=== PATIENT | male | born 1950 | race Caucasian/White ===

== ENCOUNTER → 2017-05-06 | Outpatient (CLI) | payer OTHER, MEDICARE ==
[~2017-05-06] MED LIST: AMIODARONE HCL100 MG PO; ARANESP 6060 MCG/0.3 SUBQ; ASPIR 8181 MG PO; ATORVASTATIN CA40 MG PO; B-COMPLEX PLUS1 EACH PO; COLACE 100 MG100 MG PO; COREG25 MG PO; COUMADIN 1MG TAB1 M1 PO; COUMADIN 2 MG TA2 M1 PO; HEPARIN IV; IPRAT-ALBUT 0.5-3 ML INH; LIDODERM1 EACH TOP; LISINOPRIL20 MG PO; MIDODRINE HCL 55 M1 PO; MIRALAX17 GM PO; NORCO 5-325 TA1 EACH PO; PACERONE 200 M200 M1 PO; PILOCARPINE HCL5 M1 PO; PROBIOTIC1 EAC1 PO; PROTONIX40 M1 PO; SECURA PROTECTI50 GM; SODIUM CHLORIDE50 M4 IVPB; SYNTHROID150 MCG PO; TYLENOL325 MG PO; VENOFER50 MG/2.5 IV; VITAMIN D1000 UNI1 PO; ZOFRAN ODT4 MG PO; [UNRECOGNIZED DRUG - OTHER] IV
== END ==
LOC: M.LAB 15:22
DX: E03.9 Hypothyroidism, unspecified (principal)

== ENCOUNTER → 2017-05-08 | Outpatient (CLI) | payer OTHER ==
--- NOTE | 2017-05-21 21:27 | ONC ---
[place] [address] RADIATION ONCOLOGY NOTE Name: TAINA WARD Room: [facility]#: [id number] Admission: 05/08/17 Attend Phys: Cade Rico MD Discharge: Date of : 54 Report #: [id number] THIS REPORT FOR: //name// CC: Cade Steward DO DATE OF SERVICE: 05/08/2017 REFERRING PHYSICIANS: 1. Felipe Steward DO 2. Valdemar Weeks MD 3. Jim Lopez MD 4. Chay Us MD [facility] phone is [phone]. 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 He received chemoradiotherapy. The Radiation treatments were completed on 11/06/2006. INTERVAL NOTE: The patient felt like he was eating well. He is eating a regular diet. He is swallowing well. He has a good quality voice. 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 He does take about 15 mg pilocarpine at night to help alleviate some of the symptoms associated with his xerostomia. SOCIAL HISTORY: The patient does not smoke cigarettes. MEDICATIONS: Include 150 mcg of levothyroxine per day, lisinopril, omeprazole, atorvastatin, carvedilol, aspirin, fish oil, and PreviDent. REVIEW OF SYSTEMS: RESPIRATORY: The patient was not short of breath. His breathing was baseline. GASTROINTESTINAL: He has a good appetite. PHYSICAL EXAMINATION: VITAL SIGNS: The patient weighed 230 pounds on 05/08/2017 and 226.8 pounds on 05/05/2017. On 05/08/2017 blood pressure was 134/72, pulse 60, respirations 20. LYMPH NODES: The patient had no palpable cervical or supraclavicular lymphadenopathy. HEAD, EYES, EARS, NOSE AND THROAT: Mouth had no suspicious visible lesions, or suspicious palpable lesions. HEART: Had a regular rate and [place] [address] RADIATION ONCOLOGY NOTE Name: TAINA WARD Room: [facility]#: [id number] Admission: 05/08/17 Attend Phys: Cade Rico MD Discharge: Date of : 54 Report #: [id number] LUNGS: were clear to auscultation. LABORATORY DATA: The patient's TSH was 3.305 which was within normal limits on his present dose of 150 mcg of levothyroxine per day. ASSESSMENT AND PLAN: 1. History of head and neck cancer- There is no evidence of head and neck cancer at this time. The patient was asked to schedule a follow up appointment to see me in about 1 year. 2. Hypothyroidism - The patient was given a refill for his 150 mcg of levothyroxine per day. His TSH was within normal limits on that dose of levothyroxine. A TSH was ordered in April of 2018 and the patient was asked to schedule a follow up appointment to see me afterwards. 3. Dental care- The patient was given a refill for PreviDent to use for dental care. 4. Xerostomia- The patient was given a refill for pilocarpine for xerostomia. 5. Hypertension- The patient takes lisinopril to control hypertension that is managed by his referring physicians. Thank you for allowing me to participate in the care of this patient. <ELECTRONICALLY SIGNED> By: Cade Rico MD 05/21/17 2127 [id number] 1024Dashavonne Rico MD /nt
== END ==
LOC: M.RTH 05-04 15:00
DX: Z08 Encounter for follow-up examination after completed treatment for malignant neoplasm (principal); E03.9 Hypothyroidism, unspecified; K11.7 Disturbances of salivary secretion; I10 Essential (primary) hypertension; Z85.89 Personal history of malignant neoplasm of other organs and systems

== ENCOUNTER 2017-12-16 14:00 | Inpatient (IN) | payer OTHER, MEDICARE ==
[~2017-12-16] VITALS: Ht 175.3 cm; Wt 86.6 kg
[2017-12-16] MEDS ORDERED: TYLENOL325 MG PO (14:54)
[2017-12-16] MEDS ORDERED: AMIODARONE HCL100 MG PO (14:55)
[2017-12-16] MEDS ORDERED: ASPIR 8181 MG PO (14:56)
[2017-12-16] MEDS ORDERED: ATORVASTATIN CA40 MG PO (14:57)
[2017-12-16] MEDS ORDERED: ARANESP 6060 MCG/0.3 SUBQ (15:00)
[2017-12-16] MEDS ORDERED: [UNRECOGNIZED DRUG - OTHER] IV (15:04)
[2017-12-16] MEDS ORDERED: HEPARIN IV (15:04)
[2017-12-16] MEDS ORDERED: NORCO 5-325 TA1 EACH PO (15:06)
[2017-12-16] MEDS ORDERED: IPRAT-ALBUT 0.5-3 ML INH (15:10)
[2017-12-16] MEDS ORDERED: VENOFER50 MG/2.5 IV (15:18)
[2017-12-16] MEDS ORDERED: SYNTHROID150 MCG PO (15:24)
[2017-12-16] MEDS ORDERED: PROBIOTIC1 EAC1 PO (15:24)
[2017-12-16] MEDS ORDERED: LIDODERM1 EACH TOP (15:27)
[2017-12-16] MEDS ORDERED: ZOFRAN ODT4 MG PO (15:28)
[2017-12-16] MEDS ORDERED: PILOCARPINE HCL5 M1 PO (15:29)
[2017-12-16] MEDS ORDERED: PROTONIX40 M1 PO (15:30)
[2017-12-16] MEDS ORDERED: MIRALAX17 GM PO (15:32)
[2017-12-16] MEDS ORDERED: SODIUM CHLORIDE50 M4 IVPB (15:38)
[2017-12-16] MEDS ORDERED: B-COMPLEX PLUS1 EACH PO (15:40)
[2017-12-16] MEDS ORDERED: COUMADIN 1MG TAB1 M1 PO (15:41)
[2017-12-16] MEDS ORDERED: SECURA PROTECTI50 GM (15:46)
[2017-12-16 18:30] VITALS: BP 121/83
[2017-12-16 20:18] VITALS: BP 133/82
[2017-12-17 05:00] LABS: HEMATOCRIT 26.6 % (42.0-52.0); HEMOGLOBIN 8.7 gm/dL (14.0-18.0); MCH 29.8 pg (26.0-34.0); MCHC 32.6 g/dL (28.0-37.0); MCV 91.5 fL (80.0-100.0); MPV 7.4 fl. (7.2-11.1); RBC 2.9 mil/uL (4.50-6.00); RDW-CV 17.9 % (10.5-14.5); WBC 4.3 thou/uL (4.0-11.0)
[2017-12-17 05:07] LABS: CALCIUM 7.6 mg/dL (8.5-10.1); CREATININE 3.4 mg/dL (0.6-1.3); POTASSIUM 3.5 mmol/L (3.5-5.1)
--- NOTE | 2017-12-17 05:16 | NUR ---
ASSUMED PT CARE AT 1930. PT ARRIVED TO FLOOR AT APPROXIMATELY 1830 FROM [facility]. ADMITTING DIAGNOSIS OF DEBILITY. HX OF ICD POCKET INFECTION, BATEREMIA, SUPERIOR VENA CAVA TEAR AND REPAIR, ACUTE RENAL FAILURE AND NOW ON INTERMITTENT DIALYSIS. PT HAS TESSO CATHETER TO RIGHT CHEST. PT ALREADY IN BED AT SHIFT CHANGE STATING HE IS VERY TIRED FROM DIALYSIS EARLIER IN THE DAY. PT HAD FLU SHOT AT PREVIOUS FACILITY BEFORE DEPARTURE. PT TAKES PILLS WHOLE WITH WATER WITHOUT DIFFICULTY. PEG TUBE TO LEFT UPPER QUADRANT NOT IN CURRENT USE. PT ON 2L 02 OVERNIGHT FOR COMFORT. PT SLEPT WELL OVERNIGHT, DENIES PAIN. CALL LIGHT AND FREQUENTLY USED ITEMS WITHIN REACH. HOURLY ROUNDING IN PROGRESS, WILL CONTINUE TO MONITOR.
[2017-12-17 08:00] VITALS: BP 123/75
--- NOTE | 2017-12-17 13:00 | NUR ---
Nutrition: Pt admitted to Rehab with debility. H/o cancerous throat glands/RAD leading to dry mouth. Recently had all teeth removed, waiting on dentures. Chopped/Renal diet. RN stated she will weigh pt today. No albumin recorded. RN stated pt is eating well, no nutrition concerns at this time.
[2017-12-17] MEDS ORDERED: COREG25 MG PO (13:06)
[2017-12-17] MEDS ORDERED: LISINOPRIL20 MG PO (13:07)
--- NOTE | 2017-12-17 14:59 | NUR ---
SW met with pt to complete initial assessment, introduce self, and SW role. Pt and pt brother in law were present. Pt alert, oriented. Pt lives at home with his . Pt worked but pt is retired so she can be with pt at all times at dc if needed. Pt does not have any DME and no hx of services. SW to continue to follow to assist with safe dc planning.
[2017-12-17 16:54] LABS: INR 2.2; PROTIME 22.6 Seconds (9.20-11.50)
--- NOTE | 2017-12-17 18:35 | NUR ---
PT HAS AMBULATED WITH THERAPIES WITH WALKER AND GAITBELT. PT HAS TREMORS. PT ALERT AND ORINETATED AND CALLS FOR ASSIST NEEDS. PT DENIES PAIN. OLD TRACH OSTOMY CLOSING WELL. G-TUBE INTACT TO ABDOMEN. PT DOES VOID AND I+O MAINTAINED. TESSIO CATHETER INTACT TO RT. UPPER CHEST. PT WILL HAVE DIALYSIS THURSDAY. PT TOLERATES MEALS AND HAS EATEN LUNCH IN DINNINGROOM.PT ORIENTATED TO REHAB AND THERAPY. HOURLY ROUNDING CONTINUES.
--- NOTE | 2017-12-17 20:15 | NUR ---
RESTING QUIETLY IN BED AND WATCHING TV. DENIES DISCOMFORT. CLEANED PEG TUBE SITE WITH WOUND SPRAY. TOOK MEDICATIONS WHOLE WITH WATER.
[2017-12-17 20:25] VITALS: BP 87/50
--- NOTE | 2017-12-18 05:44 | NUR ---
UP X ONE DURING THE NIGHT TO THE BATHROOM TO VOID AND HAD A BM. AMBULATED WITH GAITBELT, WALKER, STANDBY ASSIST. HOURLY ROUNDING IN PROGRESS.
[2017-12-18 07:59] VITALS: BP 98/63
[2017-12-18 08:00] VITALS: BP 98/63
--- NOTE | 2017-12-18 16:31 | NUR ---
PT ALERT AND ORIENTED X 4. DENIED PAIN DURING SHIFT. LISINOPRIL AND COREG HELD DUE TO LOW BP IN AM. UP WITH SBA USING GAIT BELT AND WALKER. PEG TUBE IN PLACE-NOT IN USE AT THIS TIME. PARTICIPATED IN THERAPIES DURING SHIFT. HOURLY ROUNDS MAINTAINED. CALL LIGHT WITHIN REACH. NURSING TO CONTINUE TO MONITOR.
[2017-12-18 20:19] VITALS: BP 123/72
--- NOTE | 2017-12-19 00:22 | NUR ---
ASSUMED CARE AT 1930. PATIENT HX DEBILITY. RESTING IN BED AT CHANGE OF SHIFT WITH MANY VISITORS. UP WITH SBA, GAIT BELT, WALKER. VOIDS INTO URINAL WHILE SITTING ON TOILET. HAD BM. DOES OWN CARES. TAKES PILLS WHOLE WITH WATER. PEG TUBE C/D/I, SKIN INTACT AROUND TUBE. 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 TESSIO CATH INTACT TO R CHEST. DIALYSIS DUE TOMORROW. NO TREMORS NOTED. TOOK SIMETHICONE FOR GAS. NO C/O PAIN. HOURLY ROUNDS CONTINUE. BED ALARM ON. CALL LITE IN REACH.
[2017-12-19 04:48] LABS: CALCIUM 8.6 mg/dL (8.5-10.1); POTASSIUM 3.6 mmol/L (3.5-5.1)
[2017-12-19 05:24] LABS: CREATININE 5.8 mg/dL (0.6-1.3)
[2017-12-19 05:27] LABS: % SATURATION 27 % (20-39); IRON 43 ug/dL (50-175)
--- NOTE | 2017-12-19 05:49 | NUR ---
SLEPT ALL NIGHT. TURNS SELF. HOURLY ROUNDS CONTINUE. BED ALARM ON. CALL LITE IN REACH.
[2017-12-19 07:00] VITALS: BP 127/70
--- NOTE | 2017-12-19 17:06 | NUR ---
PT HAS PARTICIPATED WITH THERAPIES TODAY BUT HAS FELT TIRES AND HAD SOME LABORED BREATHING. O2 SAT 92-94 AND O2 AT 2L PER NC USED NEEDED. PT CALLS FOR ASSIST TO BATHROOM AND VOIDS WELL AND HAD BM TODAY. PT REMINDED OF STRICT I+O BUT DID VOID ONCE WHEN HAVING BM ON TOILET. BANDAGE OVER OLD TRACH CHANGED WITH OLD SITE CLEANSED WITH NS. PT HAS GOOD VOICE WITH NO AIR HEARD BUT OS LOOKS HEALED BUT MOIST. G-TUBE CLEANSED AND REPOSITIONED FOR COMFORT WITH DRAIN DRESSING PLACED. PT NOW IN DIALYSIS.PT CONTINUES TO PROGRESS TOWARDS GOALS AND HOURLY ROUNDING CONTINUES.
--- NOTE | 2017-12-19 18:16 | NUR ---
dialysis compleded. pt returned to room per bed and is alert and orientated. at side.
[2017-12-19 20:00] VITALS: BP 98/48
--- NOTE | 2017-12-20 05:38 | NUR ---
ASSUMED PT CARE AT 1930. PT IN BED, AT BEDSIDE. PT RECENTLY RETURNED FROM DIALYSIS EXTREMELY TIRED. UP WITH SBA, GAIT BELT AND WALKER TO BATHROOM TO VOID. PT VERY WEAK AND UNSTEADY. VOIDS INTO URINAL R/T STRICT I&O. NO STOOL THIS SHIFT. TAKES PILLS WHOLE WITH WATER WITHOUT DIFFICULTY. PT ON 2L 02. PT C/O RIGHT SIDE BACK PAIN, REPORTING HE THINKS HE STRAINED HIS BACK TRYING TO PULL HIMSELF UP IN BED WHILE IN DIALYSIS. PRN TYLENOL GIVEN PER PT REQUEST. SKIN INTACT AT PEG TUBE SITE. TESSIO CATH INTACT TO R CHEST. DRESSING TO OLD TRACH SITE C/D/I. USES CALL LIGHT APPROPRIATELY. CALL LIGHT AND FREQUENTLY USE ITEMS WITHIN REACH. BED ALARM ON FOR SAFETY. HOURLY ROUNDING IN PROGRESS, WILL CONTINUE TO MONITOR.
[2017-12-20 07:59] VITALS: BP 97/54
[2017-12-20 11:15] VITALS: BP 98/54
[2017-12-20 11:25] VITALS: BP 77/50
[2017-12-20 13:46] VITALS: BP 90/44
--- NOTE | 2017-12-20 13:57 | NUR ---
PT HAVING LOW BP'S THIS AM AND REPORTED FEELING DIZZY WHEN WORKING WITH PHYSICAL THERAPY BUT REPORTED FEELING BETTER WHEN LYING DOWN. O2 SAT IS 98 WITH 2LNC PLACED FOR PT REQUEST FOR COMFORT. SAT WAS 92 ON ROOM AIR. PT HAS AMBULATED TO BATHROOM AND HAD BM AND VOIDED 100ML CLEAR YELLOW URINE AND NOW RESTS IN RECLINER WITH FEET ELEVATED. PT DENIES FURTHER DIZZINESS.
--- NOTE | 2017-12-20 17:01 | NUR ---
PT FEELING BETTER THIS AFTERNOON AND TOLERATED BEING UP TO RECLINER WELL. PT RESTS IN BED NOW WITH O2 ON AT 2L PER NC. PT CALLS FOR ASSIST NEEDS ADN REMAINS ALERT AND ORIENTATED.PT TOLERATES MEALS AND DENIES NAUSEA BUT DID REQUEST SIMEHTICONE THIS AM. PT PROGRESSES TOWARDS GOALS AND HOURLY ROUNDING CONTINUES.
[2017-12-20 19:45] VITALS: BP 84/43
--- NOTE | 2017-12-21 05:13 | NUR ---
ASSUMED PT CARE AT 1930. PT SITTING UP IN RECLINER VISITING WITH . PT CONTINUES TO HAVE LOW BLOOD PRESSURES. PER PT AND THIS HAS HAPPENED BEFORE AFTER DIALYSIS WHEN LARGE AMOUNT OF FLUID IS TAKEN OFF. PT HAD 2L TAKEN OFF ON 12/20. PT UP WITH SBA, GAIT BELT AND WALKER TO BATHROOM TO VOID. PT VOIDS INTO URINAL R/T STRICT I&O. NO STOOL THIS SHIFT. PT TAKES PILLS WHOLE WITH WATER WITHOUT DIFFICUTLY. PT ON 2L 02 PER NC. PRN TYLENOL FOR RIGHT SIDE PAIN. SKIN INTACT AT PEG TUBE SITE. TESSIO CATHETER INTACT TO RIGHT CHEST. DRESSING TO OLD TRACH SITE C/D/I. USES CALL LIGHT APPROPRIATELY. CALL LIGHT AND FREQUENTLY USED ITEMS WITHIN REACH. HOURLY ROUNDING IN PROGRESS, WILL CONTINUE TO MONITOR.
[2017-12-21 08:46] VITALS: BP 93/66; BP 98/66
[2017-12-21 16:45] VITALS: BP 115/69
--- NOTE | 2017-12-21 17:15 | NUR ---
pt remained alert and oriented this shift. pt bp this am was 98/66, pt/ot met with pt and bp dropped to sbp to 80's. pt returned to bed and bp went back up to sbp 90's. pt worked with pt/ot in bed today due to low bp and feeling ill. bp this afternoon increased to sbp 115. coreg dosage decreased and was administered. pt denies any pain this shift. pt got up for dinner to chair in room. walker and gait belt in room for ambulation, pt uses urinal to void. call light in reach. bed alarm on. will continue to monitor.
--- NOTE | 2017-12-21 18:13 | NUR ---
hourly rounding completed
[2017-12-21 20:09] VITALS: BP 111/62
[2017-12-22 04:34] LABS: HEMATOCRIT 29.2 % (42.0-52.0); HEMOGLOBIN 9.5 gm/dL (14.0-18.0)
[2017-12-22 04:35] LABS: ALBUMIN 2.6 g/dL (3.4-5.0); CALCIUM 8.3 mg/dL (8.5-10.1); CREATININE 5.7 mg/dL (0.6-1.3); PHOSPHORUS* 3.9 mg/dL (2.5-4.9); POTASSIUM 3.7 mmol/L (3.5-5.1)
--- NOTE | 2017-12-22 05:46 | NUR ---
ASSUMED PT CARE AT 1930. PT ALERT AND ORIENTED X4, POLITE AND COOPERATIVE WITH CARES. PT B/P WNL. PT UP WITH SBA, GAIT BELT AND WALKER TO BATHROOM TO VOID. STOOL X1 THIS SHIFT. PT TAKES PILLS WHOLE WITH WATER WITHOUT DIFFICULTY. ON 2L 02 PER NC OVERNIGHT. SKIN INTACT AT PEG TUBE SITE. TESSIO CATHETER INTECT TO RIGHT CHEST. DRESSING TO OLD TRACH SITE C/D/I. USES CALL LIGHT APPROPRIATELY. CALL LIGHT AND FREQUENTLY USED ITEMS WITHIN REACH. HOURLY ROUNDING IN PROGRESS, WILL CONTINUE TO MONITOR.
[2017-12-22 07:06] LABS: HEPATITIS B SURFACE AG Negative (Negative)
[2017-12-22 08:00] VITALS: BP 109/65
[2017-12-22 08:05] VITALS: BP 109/65
--- NOTE | 2017-12-22 11:08 | NUR ---
ASSUMED CARE OF PATIENT THIS AM AT 0730. PATIENT IS ALERT AND ORIENTED X 4. HIS AFFECT APPEARS SOMEWHAT FLAT, BUT PATIENT IS COOPERATIVE WITH GETTING UP TO TO THE CHAIR. PATIENT DENIES PAIN. PATIENT C/O BLURRED VISION IN HIS RIGHT EYE AND LIGHTHEADEDNESS. DR YU AND DR DUDLEY NOTIFIED OF PATIENT'S C/O. ORDERS WRITTEN. PATIENT NOT WORKING WITH PT OR OT TODAY. WILL CONTINUE TO MONITOR BP. COREG HELD THIS AM DUE TO LOW BPS.
--- NOTE | 2017-12-22 11:24 | NUR ---
SW called pt Asha in preparation for team conference tomorrow. Pt expressed concern regarding pt blood pressure and dialysis issues i.e. fluids, orthostatic, strength?, ability to participate 100%?. SW explained that SW will present to team conference and will follow up after team conference as well. SW to continue to follow to assist with safe dc planning.
[2017-12-22 20:25] VITALS: BP 132/70
[2017-12-22 20:30] VITALS: BP 133/69
--- NOTE | 2017-12-22 20:30 | NUR ---
AND [id number]-[id number] HERE AT SHIFT CHANGE VISITING AND JUST LEFT. PATIENT RESTING QUIETLY IN BED AND DENIES NEED FOR PAIN MEDICATION. NOTICED ABD SLIGHTLY DISTENDED AND ASKED PATIENT IF HE NEEDED PRN SIMETHICONE. PATIENT DID AGREE TO TAKING A DOSE. TOOK MEDICATIONS WHOLE WITH WATER. AMBULATED TO THE BATHROOM WITH SBA, GAITBELT, WALKER. PATIENT HAD A BM THAT WAS NOT VISIBLE DUE TO THE TOILET PAPER. PATIENT DID OWN HYGIENE AND CLOTHING ADJUSTMENTS.
[2017-12-23 05:51] LABS: CALCIUM 8.1 mg/dL (8.5-10.1); POTASSIUM 3.5 mmol/L (3.5-5.1)
[2017-12-23 05:58] LABS: CREATININE 3.3 mg/dL (0.6-1.3)
--- NOTE | 2017-12-23 06:07 | NUR ---
UP ONE MORE TIME DURING THE NIGHT TO THE BATHROOM AND HAD A LOOSE STOOL. RESTED QUIETLY THE REMAINDER OF THE NIGHT WITH 02 NC AT TWO LITERS. HOURLY ROUNDING IN PROGRESS.
[2017-12-23 08:00] VITALS: BP 104/61
[2017-12-23 10:00] VITALS: BP 116/57
[2017-12-23 10:01] VITALS: BP 102/60
[2017-12-23 10:03] VITALS: BP 105/65
--- NOTE | 2017-12-23 15:59 | NUR ---
BREANN and Dr Roach met with pt Asha to review team conference summary and plan for pt to continue therapies with team to reteam next Thursday to reassess pt length of stay. Pt and Dr Roach addressed pt BP issues, dialysis concerns, pt strengthening and participation. Pt in agreement with plan; pt was in therapy at the time. SW to continue to follow to assist with safe dc planning.
--- NOTE | 2017-12-23 18:15 | NUR ---
AM ASSESSMENT AND VITAL SIGNS COMPLETED DOCUMENTED. PT DID WELL WITH THERAPY TODAY, GOOD PROGRESS TOWARD DISCHARGE GOALS. CARDIOLOGY CONSULT PLACED FOR HYPOTENSION, DR FAGAN MADE MEDICATION CHANGES. FALL PRECAUTIONS AND HOURLY ROUNDING CONTINUE.
[2017-12-23 20:00] VITALS: BP 119/64
[2017-12-24 04:22] LABS: HEMOGLOBIN 10.1 gm/dL (14.0-18.0); MPV 7.5 fl. (7.2-11.1)
[2017-12-24 04:26] LABS: INR 1.6; PROTIME 15.9 Seconds (9.20-11.50)
[2017-12-24 04:27] LABS: ABSOLUTE BASOPHILS 0.1 thou/uL (0.0-0.2); ABSOLUTE EOSINOPHILS 0.2 thou/uL (0.0-0.7); ABSOLUTE NEUTROPHILS 2.3 thou/uL (1.6-8.1); EOSINOPHILS 3.2 %; HEMATOCRIT 30.6 % (42.0-52.0); LYMPHOCYTES 35.7 %; MCH 30.1 pg (26.0-34.0); MCHC 32.8 g/dL (28.0-37.0); MCV 91.8 fL (80.0-100.0); MONOCYTES 17.9 %; NUCLEATED RBCS 0 /100WBC; PLATELET COUNT* 342 thou/uL (150-400); POLYS 42.2 %; RBC 3.34 mil/uL (4.50-6.00); WBC 5.5 thou/uL (4.0-11.0)
[2017-12-24 04:46] LABS: CALCIUM 8.5 mg/dL (8.5-10.1); CREATININE 4.2 mg/dL (0.6-1.3); POTASSIUM 3.7 mmol/L (3.5-5.1)
--- NOTE | 2017-12-24 05:25 | NUR ---
ASSUMED CARE AT 1930. PATIENT RESTING IN BED. TAKES PILLS WHOLE WITH WATER. RT TESSIO CATH INTACT. UNCANNULATED TRACH STOMA C/D/I WITH BANDAID INTACT. MOVES SELF IN BED WELL. HAS NOT VOIDED THUS FAR THIS SHIFT. O2 2L/NC AT [facility]. HOURLY ROUNDS CONTINUE. BED ALARM ON. CALL LITE IN REACH.
[2017-12-24 08:27] VITALS: BP 144/89
--- NOTE | 2017-12-24 13:05 | EKG ---
[place] [address] ELECTROCARDIOGRAM REPORT Name: TAINA WARD Room: [address] ADM IN M.R.#: [id number] Admission: 12/16/17 Attend Phys: Viky Roach DO Discharge: Date of : 54 Report #: [id number] THIS REPORT FOR: //name// [facility] Test Date: 2017-12-24 Test Time: 08:01:14 Pat Name: TAINA ESPINOZAPKINS Department: Room: [address] Gender: M Jointer Operator: : 1950 Requested By: Rylan Jimenez Order Number: [id number] MD: Rylan Jimenez Measurements Intervals Pratt Rate: 72 P: 41 KS: 187 QRS: -37 QRSD: 113 T: QT: 455 QTc: 499 Interpretive Statements Sinus rhythm Borderline IVCD with LAD Low voltage, precordial leads Consider anterior infarct Baseline wander in lead(s) V2,V6 No previous ECG available for comparison Electronically Signed On 12-24-2017 13:04:46 CDT by Rylan Jimenez [email or web address] <ELECTRONICALLY SIGNED> By: Rylan Jimenez MD, [facility] 12/24/17 1304 0801 0801 Rylan Jimenez MD, [facility] /EPI
--- NOTE | 2017-12-24 17:40 | NUR ---
PT COMPLETED THERAPY SCHEDULED, TOLERATED WELL. HOURLY ROUNDING AND FALL PRECAUTIONS IN PLACE. PT IS CURRENTLY IN [facility].
--- NOTE | 2017-12-24 18:07 | NUR ---
PT RETURNED TO ROOM AFTER DIALYSIS AND IS SITTING UP IN BED EATING DINNER WITH HIS . PT DENIES DISCOMFORT, NO NEEDS AT THIS TIME.
[2017-12-24 20:00] VITALS: BP 97/58
[2017-12-25 05:05] LABS: ALBUMIN 2.6 g/dL (3.4-5.0); CALCIUM 7.7 mg/dL (8.5-10.1); PHOSPHORUS* 2.7 mg/dL (2.5-4.9); POTASSIUM 3.6 mmol/L (3.5-5.1)
[2017-12-25 05:12] LABS: CREATININE 2.8 mg/dL (0.6-1.3)
--- NOTE | 2017-12-25 05:19 | NUR ---
ASSUMED PT CARE AT 1930. PT ALERT AND ORIENTED X4, SITTING UP IN BED VISITING WITH . PT TO RADIOLOGY FOR CXR AT BEGINNING OF SHIFT. PT TAKES PILLS WHOLE WITH WATER WITHOUT DIFFICULTY. TESSIO CATHETER INTECT TO RIGHT CHEST. UNCANNULATED TRACH STOMA C/D/I. MOVES SELF IN BED. NO STOOL THIS SHIFT. 2L 02 PER NC AT [facility]. USES CALL LIGHT APPROPRIATELY. CALL LIGHT AND FREQUENTLY USED ITEMS WITHIN REACH. HOURLY ROUNDING IN PROGRESS, WILL CONTINUE TO MONITOR.
[2017-12-25 07:56] VITALS: BP 117/76
[2017-12-25 20:00] VITALS: BP 114/62
[2017-12-26 04:52] LABS: HEMATOCRIT 30.9 % (42.0-52.0); HEMOGLOBIN 10.1 gm/dL (14.0-18.0); MCH 30.1 pg (26.0-34.0); MCHC 32.5 g/dL (28.0-37.0); MCV 92.5 fL (80.0-100.0); MPV 7.8 fl. (7.2-11.1); RBC 3.35 mil/uL (4.50-6.00); RDW-CV 17.5 % (10.5-14.5); WBC 5.8 thou/uL (4.0-11.0)
[2017-12-26 05:11] LABS: CALCIUM 8.4 mg/dL (8.5-10.1); MAGNESIUM 1.7 mg/dL (1.8-2.4); POTASSIUM 3.4 mmol/L (3.5-5.1)
[2017-12-26 05:12] LABS: CREATININE 3.8 mg/dL (0.6-1.3)
--- NOTE | 2017-12-26 05:19 | NUR ---
ASSUMED CARE AT 1930. PATIENT RESTING IN BED, PLAYING GAMES ON PHONE AND WATCHING TV. TAKES PILLS WHOLE WITH WATER. TURNS SELF. O2 2L/NC APPLIED BY RT AFTER HS BREATHING TREATMENT. HAS NOT VOIDED THUS FAR THIS SHIFT. BLOOD PRESSURE 114/62, NO PRN MED NEEDED. TESSIO CATH DRESSING C/D/I. G TUBE INTACT, SKIN SURROUNDING D/I. TRACH STOMA C/D/I. HOURLY ROUNDS CONTINUE. BED ALARM ON. CALL LITE IN REACH.
[2017-12-26 08:00] VITALS: BP 116/80
--- NOTE | 2017-12-26 17:55 | NUR ---
AM ASSESSMENT AND VITAL SIGNS COMPLETED DOCUMENTED. PT COMPLETED THERAPY AND HAD DIALYSIS TODAY, TOLERATED BOTH WELL. DRESSING TO RIGHT CHEST TESSIO CHANGED IN DIALYSIS, C/D/I AT THIS TIME. PT VOIDED 450 CC'S URINE THIS SHIFT. NO C/O PAIN OR DISCOMFORT. HOURLY ROUNDING AND FALL PRECAUTIONS CONTINUE.
[2017-12-26 20:30] VITALS: BP 119/71
--- NOTE | 2017-12-26 20:30 | NUR ---
RESTING QUIETLY IN BED AND WATCHING TV. HERE EARLIER VISITING. DENIES DISCOMFORT. AMBULATED TO THE BATHROOM WITH SBA, GAITBELT, WALKER. HAD A SMALL LOOSE STOOL. DID OWN RICHIE CARE AND CLOTHING ADJUSTMENTS. TOOK MEDICATIONS WHOLE WITH WATER.
--- NOTE | 2017-12-27 05:24 | NUR ---
RESTED QUIETLY. USED URINAL X ONE DURING THE NIGHT. HAD OXYGEN AT 2 LITER NC AT STANDBY. DIDN'T PUT IT ON UNTIL ABOUT 0400. 02 SAT 98% WITH THE 2 LITERS. HOURLY ROUNDING IN PROGRESS.
[2017-12-27 08:00] VITALS: BP 112/76
--- NOTE | 2017-12-27 15:12 | CON ---
[facility] [address] [place] [address] CONSULTATION Name: TAINA WARD Room: [address] IN .R.#: [id number] Admission: 12/16/17 Attend Phys: Viky Roach DO Discharge: Date of : 54 Report #: [id number] THIS REPORT FOR: //name// CC: Juancho Roach DATE OF SERVICE: 12/23/2017 TYPE OF REPORT: Cardiology consultation. PRIMARY CARE PHYSICIAN: Juancho Gomez M.D. HISTORY OF PRESENT ILLNESS: The patient is a 67-year-old white male who I was asked to see in the hospital today because of low blood pressure. The patient has an extensive and complicated past medical history. He apparently presented 14 years ago with chest pain. He was found to have evidence of a nonischemic cardiomyopathy. He was admitted to [facility] on [facility] and had a defibrillator implanted. He underwent a generator change about 7 years ago at [facility]. This past summer, he was found again be at [facility]. He was admitted to [facility] in [facility] as an outpatient to undergo his second generator change. He notes the defibrillator is not pace and he had had no recent discharges. Apparently, the procedure was performed as an outpatient. He notes that the next day when he was at home, had some redness over the defibrillator. He was readmitted to [facility] in [facility] on the following Thursday for antibiotics. He apparently was noted to have positive blood cultures. A week later then, the generator was removed. He was then taken to the Operating Room and according to the patient's family, both leads were removed in the Operating Room. However, apparently when one of the leads were removed, a vein perforated. He required emergent thoracotomy with repair of the vein. He had to be taken back to the Operating Room 2 days later to have a patch placed on the vein. He had a prolonged and complicated postoperative course. He developed renal failure and now is on dialysis with the temporary dialysis catheter. He required tracheostomy for prolonged respiratory failure. He had a PEG tube placed. He was then transferred to [place] where he was for a month. Eventually, he was weaned off the ventilator and the tracheostomy was closed. He does the PEG tube, although he is now swallowing. He was transferred here to [place] a week ago for rehabilitation. The patient remains very weak and uses a walker. He has had no significant chest pain. He does get short of breath with exertion. He has had no palpitations or syncope. He has had some blurred vision. He does not have much of an appetite. He was noted to be hypotensive. Cardiology consultation was requested. Apparently, his last ejection fraction was 48%. He remains on oxygen. He apparently did have postoperative atrial fibrillation requiring cardioversion and [place] [address] CONSULTATION Name: TAINA WARD Room: [address] [id number] Admission: 12/16/17 Attend Phys: Viky Roach DO Discharge: Date of : 54 Report #: [id number] PAST MEDICAL HISTORY: Otherwise significant for cancer of the throat requiring chemotherapy and radiation therapy. He has had no history of hypertension, diabetes or hyperlipidemia. ALLERGIES: He has no known drug allergies. FAMILY HISTORY: Negative for heart disease. SOCIAL HISTORY: He is . He and his live here in [place]. 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 No smoking or alcohol abuse. REVIEW OF SYSTEMS: He has had no history of stroke, asthma, peptic ulcer disease or liver disease. PHYSICAL EXAMINATION: GENERAL: Revealed an elderly male, lying in bed, appeared in no distress. VITAL SIGNS: He had a blood pressure of only 100/60, pulse is 80s and afebrile. HEENT: He is anicteric. Conjunctivae pink. Mucous members appear moist. NECK: Veins do not appear distended. CHEST: Clear to auscultation. CARDIOVASCULAR: Regular rate and rhythm. ABDOMEN: Soft. EXTREMITIES: Had no edema. SKIN: Warm and dry. NEUROLOGICAL: Nonfocal. LABORATORY DATA: His workup so far: Sodium 137 and creatinine 3.3. His white blood cell count 5.3, hemoglobin 9.5 and hematocrit 29.2. RADIOLOGICAL DATA: He had no recent chest x-ray here. IMPRESSION AND RECOMMENDATIONS: 1. Hypotension, suspect secondary to removal of fluid during dialysis. The patient is on midodrine. Since his ejection fraction was almost normalized, I would stop his small dose of carvedilol at this time. I would also recommend decrease the dose of amiodarone 400, only 200 mg a day. I would avoid dehydration. 2. History of atrial fibrillation. The patient is chronically anticoagulated with warfarin. His INR last week was 2.2. 3. Cardiomyopathy. Ejection fraction has improved. 4. History of atrial fibrillation. The patient is on amiodarone and anticoagulated. 5. Recent removal of a defibrillator leads. 6. Recent perforation or vein requiring surgery. 7. Renal failure. The patient on dialysis. [address] [place] [address] CONSULTATION Name: TAINA WARD Room: [address] IN ..#: [id number] Admission: 12/16/17 Attend Phys: Viky Roach DO Discharge: Date of : 54 Report #: [id number] 8. History of respiratory failure. The patient no longer requires tracheostomy. <ELECTRONICALLY SIGNED> By: Rylan Jimenez MD, FACC 12/27/17 1512 1633 [id number] Jimenez MD, FACC /nt
[2017-12-27 18:10] LABS: INR 1.3; PROTIME 13.8 Seconds (9.20-11.50)
--- NOTE | 2017-12-27 18:37 | NUR ---
PT PLEASANT AND COOPERATIVE BUT REFUSED TO EAT IN THE DINING ROOM OR WALK IN THE HALLS. PT DID HAVE SEVERAL VISITORS AND HE INTERACTS WELL WITH THEM AND HIS . URINE OUTPUT 525 ML THIS SHIFT. NO ACUTE DISTRESS NOTED.
[2017-12-27 19:58] VITALS: BP 134/73
--- NOTE | 2017-12-28 01:22 | NUR ---
ASSUMED CARE @ 1944-12/27-THURSDAY.AWAKE IN BED W/ HOB UP WATCJHING TV.BED ALARM PUT ON @ 1944.PEG TUBING INTACT BUT NOT BEING USED @ THIS TIME.BAND AID SAMARA INTACT-TRACH SITE.URINAL W/IN REACH.ON HOURLY ROUNDS.PUMPER GAGER APPRENTICE DOING ODD HOUR ROUNDS.TURNS SELF @ NIGHT.02 2L/NC ON FOR NIGHT USE.
[2017-12-28 04:13] LABS: CALCIUM 8.2 mg/dL (8.5-10.1); CREATININE 3.8 mg/dL (0.6-1.3); POTASSIUM 3.6 mmol/L (3.5-5.1)
--- NOTE | 2017-12-28 05:33 | NUR ---
SLEPT LATE @ 0000-12/28-THURSDAY & SLEEPING GOOD ALL NIGHT.REFUSED HS SNACK. NO VOIDING DURING NIGHT.ON DIALYSIS.
[2017-12-28 08:46] VITALS: BP 124/78
--- NOTE | 2017-12-28 17:57 | NUR ---
ASSUMED CARE OF PATIENT AFTER MORNING REPORT AT APPROX 0720. ALERT AND OREINTED X4. ASSESSMENT COMPLETED AND CHARTED. VSS ON ROOM AIR. NO COMPLAINTS OF PAIN, NAUSEA, OR SOA. PATIENT WORKED WELL WITH THERAPIES AND WALKED AROUND THE UNIT TWICE TODAY. PATIENT DECLINED TO HAVE MEALS IN THE DINING ROOM TODAY. WIFR HAS BEEN AT BEDSIDE TODAY. HOURLY ROUNDS MAINTAINED, CALL LIGTH WITHIN REACH, NURSING WILL CONTINUE TO MONITOR.
[2017-12-28 19:35] VITALS: BP 140/79
--- NOTE | 2017-12-29 00:54 | NUR ---
ASSUMED CARE @ 1929-12/28-THURSDAY.AWAKE IN BED W/ HOB UP WATCHING TV.BED ALARM PUT ON @ 1937.PRN SIMETHICONE 120 MG TABS GIVEN @ 1937 FOR GAS PAINS.AFFORDED RELIEF.PEG SITE CLEANSED W/ WOUND CLEANSER @ 2014 & DRIED WELL.URINAL W/IN REACH.WEARS ONLY RIGHT HEARING AID.LEFT HEARING AID-BROKEN.REMOVES HEARING AID @ HS.AWAKENED @ -12/29-THURSDAY TO PUT O2 BUT CLAIMS HE DOES NOT NEED IT. TURNS SELF @ NIGHT.ON HOURLY ROUNDS.
[2017-12-29 04:56] LABS: INR 1.4
[2017-12-29 04:58] LABS: CALCIUM 8.5 mg/dL (8.5-10.1); CREATININE 4.3 mg/dL (0.6-1.3); POTASSIUM 3.8 mmol/L (3.5-5.1)
--- NOTE | 2017-12-29 05:37 | NUR ---
SLEPT LATE @ 2300 BUT SLEEPING GOOD ALL NIGHT.REFUSED HS SNACK.REFUSED NEW ORDER LOVENOX @ HS.WANTS TO TALK TO HIMS WHO ORDERED LOVENOX-SINCE HE IS ALREADY ON COUMADIN.SLEEPING @ 0300 W/OUT O2. O2 SAT-93 %.USED URINAL X1 ONLY. NURSE EMPTIES URINAL @ NIGHT.FOR DIALYSIS TODAY-THURSDAY @ 1400.
[2017-12-29 11:00] VITALS: BP 136/86
--- NOTE | 2017-12-29 13:17 | NUR ---
SW followed up with pt regarding dc planning and insurance coverage. SW explained team requesting a couple more days with pt for family training and continued strengthening; also to ensure medical stability and prepare for possible OP dialysis and follow up services. SW to continue to follow to assist with finalizing safe dc plan.
--- NOTE | 2017-12-29 15:07 | NUR ---
PT ALERT AND ORIENTED X 4. DENIES PAIN. UP WITH SBA X1. PEG TUBE IN PLACE. DIALYSIS CATHETER RIGHT CHEST. SPOUSE AT BEDSIDE. WILL USE CALL LIGHT FOR ASSISTANCE. PT TO DIALYSIS ROOM BY BED @ 1350.
--- NOTE | 2017-12-29 18:35 | NUR ---
PT RETURNED FROM DIALYSIS AT 1735. JF=723/80, P=88. DENIES PAIN. HOURLY ROUNDS MAINTAINED. AT BEDSIDE. WILL USE CALL LIGHT FOR ASSISTANCE. CALL LIGHT WITHIN REACH. NURSING TO CONTINUE TO MONITOR.
[2017-12-29 20:00] VITALS: BP 125/68
[2017-12-30 04:24] LABS: ABSOLUTE BASOPHILS 0.1 thou/uL (0.0-0.2); ABSOLUTE EOSINOPHILS 0.1 thou/uL (0.0-0.7); ABSOLUTE LYMPHOCYTES 1.7 thou/uL (0.8-5.3); ABSOLUTE MONOCYTES 1.2 thou/uL (0.0-1.2); ABSOLUTE NEUTROPHILS 3.3 thou/uL (1.6-8.1); BASOPHILS 1.3 %; EOSINOPHILS 1.8 %; HEMATOCRIT 31.5 % (42.0-52.0); HEMOGLOBIN 10.2 gm/dL (14.0-18.0); LYMPHOCYTES 26.3 %; MCH 29.6 pg (26.0-34.0); MCHC 32.5 g/dL (28.0-37.0); MCV 91.3 fL (80.0-100.0); MONOCYTES 18.5 %; MPV 8.3 fl. (7.2-11.1); NUCLEATED RBCS 0 /100WBC; PLATELET COUNT* 275 thou/uL (150-400); POLYS 52.1 %; RBC 3.45 mil/uL (4.50-6.00); RDW-CV 16.8 % (10.5-14.5); WBC 6.3 thou/uL (4.0-11.0)
[2017-12-30 04:32] LABS: INR 1.5; PROTIME 15.4 Seconds (9.20-11.50)
[2017-12-30 04:33] LABS: CALCIUM 8.1 mg/dL (8.5-10.1); POTASSIUM 3.9 mmol/L (3.5-5.1)
[2017-12-30 04:50] LABS: CREATININE 2.8 mg/dL (0.6-1.3)
--- NOTE | 2017-12-30 05:17 | NUR ---
ASSUMED PT CARE AT 1930. PT ALERT AND ORIENTED 4, POLITE AND COOPERATIVE WITH CARES. SITTING UP IN BED VISITING WITH . PT RECENTLY RETURNED FROM DIALYSIS. VS WNL, DENIES PAIN. PT IS [place], ONLY WEARS RIGHT HEARING AIDE, LEFT ONE IS BROKEN. TAKES PILLS WHOLE WITH WATER WITHOUT DIFFICULTY. PT UP WITH SBA, GAIT BELT AND CANE TO BATHROOM, STOOL X1 THIS SHIFT. PT USES URINAL AND STAFF EMPTIES. PT TOOK LOVENOX THIS EVENING. BAND AID TO TRACH SITE C/D/I. TESSIO CATHETER INTACT TO RIGHT CHEST. PEG TUB TO ABDOMEN, NO S/S OF INFECTION. USES CALL LIGHT APPROPRIATELY. CALL LIGHT AND FREQUENTLY USED ITEMS WITHIN REACH. HOURLY ROUNDING IN PROGESS, WILL CONTINUE TO MONITOR.
[2017-12-30 06:20] VITALS: BP 159/73
[2017-12-30 08:04] VITALS: BP 134/79
[2017-12-30] MEDS ORDERED: COUMADIN 2 MG TA2 M1 PO (11:19)
[2017-12-30] MEDS ORDERED: PACERONE 200 M200 M1 PO (11:19)
[2017-12-30] MEDS ORDERED: COLACE 100 MG100 MG PO (11:20)
[2017-12-30] MEDS ORDERED: VITAMIN D1000 UNI1 PO (11:21)
[2017-12-30] MEDS ORDERED: PROBIOTIC1 EAC1 PO (11:21)
--- NOTE | 2017-12-30 15:18 | NUR ---
BREANN and Dr Roach met with pt and pt to review team conference summary and plan for pt to dc home with on Thursday. Pt to complete family training today and then pt allowed to be mod I in room as long as pt is present. Pt to have video swallow on Thursday prior to dc. Team recommending pt to continue vital stem after dc. SW to order SPC; [facility] checked pt insurance and they approved referral. SW to follow to arrange for HH services to follow at dc. Referral sent for OP dialysis to [facility] requesting BS location. BREANN to continue to follow to assist with safe dc planning.
--- NOTE | 2017-12-30 15:38 | NUR ---
AM ASSESSMENT AND VITAL SIGNS COMPLETED DOCUMENTED. PT CONTINUES TO WORK WITH THERAPIES AND CONTINUES TO MAKE PROGRESS TOWARD DISCHARGE GOALS. PT AND HIS BOTH STATE THEY ARE EXCITED ABOUT DISCHARGE THURSDAY. FALL PRECAUTIONS AND HOURLY ROUNDING CONTINUE.
--- NOTE | 2017-12-30 20:00 | NUR ---
SITTING UP IN RECLINER PLAYING [employer] ON CELL PHONE. DENIES DISCOMFORT. TOOK MEDICATIONS WHOLE WITH WATER.
[2017-12-30 20:21] VITALS: BP 133/81
[2017-12-31 05:17] LABS: CALCIUM 8.3 mg/dL (8.5-10.1); POTASSIUM 3.6 mmol/L (3.5-5.1)
--- NOTE | 2017-12-31 05:17 | NUR ---
UP X 2 TO VOID AND HAD A LOOSE STOOL EACH TIME. DOESN'T CALL FOR ASSIST WHEN GOES TO THE BATHROOM. NO COMPLAINTS VOICED. HOURLY ROUNDING IN PROGRESS.
[2017-12-31 05:20] LABS: CREATININE 3.8 mg/dL (0.6-1.3)
[2017-12-31 08:00] VITALS: BP 140/72
[2017-12-31 08:51] VITALS: BP 140/72
[2017-12-31 19:43] VITALS: BP 119/72
[2018-01-01 02:03] VITALS: BP 119/72
[2018-01-01] MEDS ORDERED: MIDODRINE HCL 55 M1 PO (02:33)
[2018-01-01 04:30] LABS: INR 1.7; PROTIME 17.5 Seconds (9.20-11.50)
--- NOTE | 2018-01-01 05:23 | NUR ---
ASSUMED CARE AT 1920. ALERT AND ORIENTED. PLEASANT. DENIED ANY PAIN. DID NOT STAY OVERNIGHT. TOLD PT TO CALL WHEN NEEDING TO GET UP. PT VOICED UNDERSTANDING. SBA WITH GAIT BELT AND CANE. USED URINAL AND NURSING EMPTIED. SLEPT WELL MOST OF THE NIGHT. CALL LIGHT IN REACH.
[2018-01-01 07:54] VITALS: BP 113/77
[2018-01-01 12:01] VITALS: BP 119/72
--- NOTE | 2018-01-01 12:03 | NUR ---
Pt to dc home with today, Monday 01/01. HH services to follow; SW faxed referral and final orders to pt/family preference on [facility]; they accepted referral. SW confirmed OP dialysis accepted through [facility]; pt chair time TThSat at 11:15 and pt to arrive on Sat at 10:45. BREANN discussed this with pt and pt . BREANN ordered single point cane through [facility] that is to be issued through PT prior to pt dc. SW provided the completed handicap parking tag form to pt . Pt to provide pt ride home.
--- NOTE | 2018-01-01 12:33 | NUR ---
AM ASSESSMENT AND VITAL SIGNS COMPLETED DOCUMENTED. PT HAS COMPLETED AM THERAPIES AND A VIDEO SWALLOW. DISCHARGE GOALS HAVE BEEN MET AND PT WILL BE GOING HOME THIS AFTERNOON.
--- NOTE | 2018-01-01 13:54 | NUR ---
DISCHARGE INSTRUCTIONS AND NEW PRESCRIPTIONS PROVIDED TO PT AND HIS . PRINTED COPY PROVIDED FOR HOME REFERENCE. PT AND BELONGINGS TRANSPORTED TO THE EXIT, DISCHARGED HOME IN STABLE CONDITION.
--- NOTE | 2018-01-20 13:57 | H ---
[address] [address] HISTORY AND PHYSICAL Name: TAINA WARD Room: [address]#: [id number] Admission: 12/16/17 Attend Phys: Viky Roach DO Discharge: 01/01/18 Date of : 54 Report #: [id number] THIS REPORT FOR: //name// CC: Juancho Roach DATE OF SERVICE: 12/16/2017 HISTORY OF PRESENT ILLNESS: This is a 67-year-old male admitted to inpatient rehabilitation to facilitate safe discharge home, status post acute hospitalization further at [place] with history of ICD pocket infection, bacteremia, antibiotics had been initiated; superior vena cava tear with repair; subsequent stenosis; thrombectomy x 2, on warfarin; acute renal failure with intermittent dialysis; cardiopulmonary arrest with tracheostomy, on oxygen; previous PEG tube, but now taking p.o. food and multiple medical comorbidities requiring acute daily medical care. He has been participating in physical and occupational therapy as well as speech and language pathology. No significant changes since the preadmission screening. Previous level of function was modified independent to independent with activities of daily living. Current level of function is [id number]-et-[id number] assistance of 1-2 depending on therapy, activity and time of day. Estimated length of stay is 14-16 days with discharge disposition to the home setting where he has supportive family and an accessible home. MEDICATIONS: Reviewed and reconciled by myself and are available in MAR. PAST MEDICAL HISTORY: Hypertension, coronary artery disease, SVT, nonischemic cardiomyopathy, tonsillar cancer, hypothyroid. FAMILY HISTORY: Heart disease. SOCIAL HISTORY: No tobacco, alcohol or illicit drug use. PAST SURGICAL HISTORY: History of throat cancer in 2008, hernia repair and surgeries as mentioned in HPI. ALLERGIES: No known drug allergies. REVIEW OF SYSTEMS: A 14-point review of systems is done and is negative except as mentioned in HPI, specifically no fever, chest pain, shortness of breath, abdominal pain or distention. PHYSICAL EXAMINATION: GENERAL: Alert, oriented, in no apparent distress. VITAL SIGNS: Reviewed and are stable. HEENT: Head atraumatic, normocephalic. Pupils equal, round, [place] [address] HISTORY AND PHYSICAL Name: TAINA WARD Room: [address]#: [id number] Admission: 12/16/17 Attend Phys: Viky Roach DO Discharge: 01/01/18 Date of : 54 Report #: [id number] ABDOMEN: Soft, nontender, nondistended. NEUROLOGIC: Cranial nerves 2-12 are grossly intact. No focal neuro deficits. SKIN: Warm and dry. No rashes or lesions noted. ASSESSMENT: 1. History of ICD pocket infection with bacteremia. 2. Superior vena cava tear, status post repair with subsequent stenosis and thrombectomy x 2. 3. Acute renal failure with intermittent dialysis. 4. History of n.p.o. with PEG tube status for nutrition, now taking p.o. 5. History of multiple medical comorbidities requiring acute daily medical care. PLAN: 1. Admission to inpatient rehabilitation to facilitate safe discharge home. 2. PT, OT, speech, language, case management, nursing and HIMS to make evaluations and recommendations. 3. Plan of care is pending and we will team him weekly. 4. Laboratories on the day after admission. 5. Renal to follow for dialysis recommendations and initiation. <ELECTRONICALLY SIGNED> By: Viky Roach DO 01/20/18 1357 [id number] Roach DO /nt
--- NOTE | 2018-01-20 13:57 | PLAN ---
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 He is on anticoagulation. He has acute renal failure on intermittent dialysis as well as history of cardiopulmonary arrest with tracheostomy, status post oxygen via trach shield, PEG tube for nutrition although he is now taking p.o. He does have multiple medical comorbidities requiring acute daily medical care. He has needs in physical and occupational therapy as well as speech and language pathology. Previous level of function was modified independent to independent with activities of daily living. Current level of function is minimum to moderate assistance of 1-2 depending on therapy, activity and time of day. Estimated length of stay is 14-16 days with discharge disposition to home setting with a supportive family and accessible home. MEDICAL PROGNOSIS: Good. REHABILITATION PROGNOSIS: Good. Physical therapy will see the patient 60-90 minutes per day, 5 days per week, working on upper and lower body strength, balance, coordination and navigation. Occupational therapy will see the patient 60-90 minutes per day, 5 days per week, working on upper and lower body strength, balance, coordination, navigation, bathing, dressing and toileting. Speech and language pathology will work with the patient 30-90 minutes per day, 5 days per week, working on expression, memory, social interaction and judgment. He will be on a low endurance protocol. This is an overall plan of care and it may change from time to time. We will team him weekly and make changes to plan of care as needed. <ELECTRONICALLY SIGNED> By: Viky Roach DO 01/20/18 1357 [id number] Roach DO /nt
== END 2018-01-01 14:00 | disposition home health service (06) | DRG 947 ==
LOC: M.REH 14:00
PROVIDERS: Family Medicine; Internal Medicine; Internal Medicine Nephrology; ADMIT Physical Medicine & Rehabilitation
PROC: 5A1D70Z Performance of Urinary Filtration, Intermittent, Less than 6 Hours Per Day (ICD-10-PCS; principal; 2017-12-19)
PROC: 5A1D70Z Performance of Urinary Filtration, Intermittent, Less than 6 Hours Per Day (ICD-10-PCS; 2017-12-22)
PROC: 5A1D70Z Performance of Urinary Filtration, Intermittent, Less than 6 Hours Per Day (ICD-10-PCS; 2017-12-24)
PROC: 5A1D70Z Performance of Urinary Filtration, Intermittent, Less than 6 Hours Per Day (ICD-10-PCS; 2017-12-26)
PROC: 5A1D70Z Performance of Urinary Filtration, Intermittent, Less than 6 Hours Per Day (ICD-10-PCS; 2017-12-31)
DX: R53.81 Other malaise (principal); N17.0 Acute kidney failure with tubular necrosis; T82.7XXA Infection and inflammatory reaction due to other cardiac and vascular devices, implants and grafts, initial encounter; R78.81 Bacteremia; I13.0 Hypertensive heart and chronic kidney disease with heart failure and stage 1 through stage 4 chronic kidney disease, or unspecified chronic kidney disease; I50.22 Chronic systolic (congestive) heart failure; I42.9 Cardiomyopathy, unspecified; I87.1 Compression of vein; Z99.2 Dependence on renal dialysis; I48.91 Unspecified atrial fibrillation; R53.1 Weakness; E03.9 Hypothyroidism, unspecified; K11.7 Disturbances of salivary secretion; N18.9 Chronic kidney disease, unspecified; I95.9 Hypotension, unspecified; I25.10 Atherosclerotic heart disease of native coronary artery without angina pectoris; D63.1 Anemia in chronic kidney disease; E78.5 Hyperlipidemia, unspecified; Y84.8 Other medical procedures as the cause of abnormal reaction of the patient, or of later complication, without mention of misadventure at the time of the procedure; Z79.899 Other long term (current) drug therapy; Z79.01 Long term (current) use of anticoagulants; Z93.0 Tracheostomy status; Z85.20 Personal history of malignant neoplasm of unspecified respiratory organ; Z82.49 Family history of ischemic heart disease and other diseases of the circulatory system; Z93.1 Gastrostomy status; Z79.82 Long term (current) use of aspirin; Z95.810 Presence of automatic (implantable) cardiac defibrillator; Y92.89 Other specified places as the place of occurrence of the external cause

== ENCOUNTER → 2018-03-05 | Outpatient (CLI) | payer OTHER, MEDICARE ==
[2018-03-05 07:52] LABS: CALCIUM 8.6 mg/dL (8.5-10.1); CREATININE 2.4 mg/dL (0.6-1.3); POTASSIUM 4.3 mmol/L (3.5-5.1)
== END ==
LOC: M.LAB 07:28
PROVIDERS: Internal Medicine Nephrology
DX: I13.2 Hypertensive heart and chronic kidney disease with heart failure and with stage 5 chronic kidney disease, or end stage renal disease (principal); N18.6 End stage renal disease; I50.9 Heart failure, unspecified; Z99.2 Dependence on renal dialysis

== ENCOUNTER → 2018-03-08 | Outpatient (CLI) | payer OTHER, MEDICARE ==
[2018-03-08 07:33] LABS: CALCIUM 8.6 mg/dL (8.5-10.1); POTASSIUM 4.4 mmol/L (3.5-5.1)
[2018-03-08 07:34] LABS: CREATININE 3.5 mg/dL (0.6-1.3)
== END ==
LOC: M.LAB 07:08
PROVIDERS: Internal Medicine Nephrology
DX: I13.2 Hypertensive heart and chronic kidney disease with heart failure and with stage 5 chronic kidney disease, or end stage renal disease (principal); N18.6 End stage renal disease; I50.22 Chronic systolic (congestive) heart failure; Z99.2 Dependence on renal dialysis

== ENCOUNTER → 2018-03-30 | Outpatient (CLI) | payer OTHER, MEDICARE ==
[2018-03-30 07:05] LABS: CALCIUM 8.6 mg/dL (8.5-10.1); CREATININE 3.2 mg/dL (0.6-1.3); POTASSIUM 4.4 mmol/L (3.5-5.1)
== END ==
LOC: M.LAB 06:38
PROVIDERS: Internal Medicine Nephrology
DX: N18.6 End stage renal disease (principal)

== ENCOUNTER → 2018-04-17 | Outpatient (CLI) | payer MEDICARE, OTHER ==
[2018-04-17 08:34] LABS: CALCIUM 8.6 mg/dL (8.5-10.1); CREATININE 3.2 mg/dL (0.6-1.3); POTASSIUM 4.5 mmol/L (3.5-5.1)
== END ==
LOC: M.LAB 08:02
PROVIDERS: Internal Medicine Nephrology
DX: I12.0 Hypertensive chronic kidney disease with stage 5 chronic kidney disease or end stage renal disease (principal); N18.6 End stage renal disease

== ENCOUNTER → 2018-05-14 | Outpatient (CLI) | payer MEDICARE, OTHER ==
--- NOTE | ~2018-05-14 | ONC ---
[address] [address] RADIATION ONCOLOGY NOTE Name: TAINA WARD SAHARA [id number] Admission: 05/14/18 Attend Phys: Cade Rico MD Discharge: Date of : 54 Report #: [id number] THIS REPORT FOR: //name// CC: Juancho Rico DATE OF SERVICE: 05/14/2018 RADIATION ONCOLOGY FOLLOWUP NOTE REFERRING PHYSICIANS: Dr. Mcallister, he has a new primary care physician Dr. Magdaleno, Dr. Farrell from Pulmonary, Dr. Mayte Larson, Dr. Lopez and Dr. Deedee Hernandez. [facility] phone is [phone]. PRIMARY SITE AND HISTOPATHOLOGY: The patient received postoperative radiation therapy after resection of a stage 4A tonsillar cancer and he received chemoradiotherapy. The radiation treatments were completed on 11/06/2006. INTERVAL NOTE: He indicated that last year he had to have an operation because of issues with his defibrillator. He indicated he developed an infection at that time and then the defibrillator was removed. Due to those issues, he said he had a tracheostomy for about 5 weeks and that he also had a mild stroke, which affected his vision and he also became dialysis dependent. He says he has dialysis about 3 times a week at this point. He now has a full set of dentures. He is edentulous. MEDICATIONS: Cromolyn nasal spray, 175 mcg of levothyroxine, carvedilol, Renal Caps, amiodarone, warfarin, omeprazole, pilocarpine, Aranesp and atorvastatin. SOCIAL HISTORY: Cigarettes: The patient does not smoke cigarettes. REVIEW OF SYSTEMS: RESPIRATORY: The patient was not short of breath. His breathing was baseline. GASTROINTESTINAL: He has a good appetite. PHYSICAL EXAMINATION: VITAL SIGNS: The patient weighed 190.8 pounds on 05/14/2018. He was 230 pounds on 05/08/2017. He attributed the weight loss because of his admission. Blood pressure is 121/76, pulse 66, respirations 18, oxygen saturation was 98%. LYMPH NODES: The patient had no palpable cervical or supraclavicular lymphadenopathy. HEAD, EYES, EARS, NOSE, AND THROAT: Mouth had no suspicious visible lesions or suspicious palpable lesions. HEART: Had a regular rate and rhythm without murmur. LUNGS: [place] [address] RADIATION ONCOLOGY NOTE Name: TAINA WARD SAHARA Room: [facility]#: [id number] Admission: 05/14/18 Attend Phys: Cade Rico MD Discharge: Date of : 54 Report #: [id number] LABORATORY AND DIAGNOSTIC DATA: From 06/03/2018, his TSH was 1.821, which is within normal limits with him taking 175 mcg of levothyroxine per day. ASSESSMENT AND PLAN: 1. History of head and neck cancer. There is no evidence of neck cancer at this time. The patient was given a requisition for TSH level to be done 04/2019 or 05/2019 and the patient was asked to schedule a followup appointment to see me afterwards. 2. Hypothyroidism. The patient was given a refill for 175 mcg of levothyroxine per day and he was given a requisition for TSH in about 1 year and he is asked to follow up with me afterwards. 3. Xerostomia. The patient was given a refill for pilocarpine for xerostomia. 4. Hyperlipidemia. The patient takes atorvastatin and that is managed by his referring physicians. Thank you for allowing me to participate in the care of this patient. By: [id number] [id number] Rico MD /kaushal
== END ==
LOC: M.RTH 05-10 16:00
DX: Z08 Encounter for follow-up examination after completed treatment for malignant neoplasm (principal); E03.9 Hypothyroidism, unspecified; E78.5 Hyperlipidemia, unspecified; K11.7 Disturbances of salivary secretion; Z85.89 Personal history of malignant neoplasm of other organs and systems

== ENCOUNTER 2018-10-13 21:28 | Emergency (ER) | payer MEDICARE, OTHER ==
[~2018-10-13] VITALS: Ht 175.3 cm; Wt 86.2 kg
[2018-10-13] MEDS ORDERED: KEFLEX500 M1 PO (22:08)
[2018-10-13 22:24] LABS: PROTIME 44.5 Seconds (9.20-11.50)
[2018-10-13 22:30] LABS: INR 4.6
[2018-10-13 22:39] VITALS: BP 134/72
== END 2018-10-13 22:39 | disposition home or self-care (01) ==
LOC: M.ERS 21:28
PROVIDERS: Emergency Medicine Emergency Medical Services
DX: S66.822A Laceration of other specified muscles, fascia and tendons at wrist and hand level, left hand, initial encounter (principal); I50.9 Heart failure, unspecified; E03.9 Hypothyroidism, unspecified; E78.5 Hyperlipidemia, unspecified; Z86.2 Personal history of diseases of the blood and blood-forming organs and certain disorders involving the immune mechanism; Z86.718 Personal history of other venous thrombosis and embolism; W31.89XA Contact with other specified machinery, initial encounter; Y93.89 Activity, other specified; Y92.89 Other specified places as the place of occurrence of the external cause; Y99.8 Other external cause status

== ENCOUNTER 2019-01-27 07:09 | Emergency (ER) | payer MEDICARE, OTHER ==
[~2019-01-27] VITALS: Ht 175.3 cm; Wt 85.7 kg
[~2019-01-27 07:09] MED LIST changes: +KEFLEX500 M1 PO
[2019-01-27 08:00] LABS: CALCIUM 9.2 mg/dL (8.5-10.1); POTASSIUM 4.3 mmol/L (3.5-5.1)
[2019-01-27] MEDS ORDERED: PREDNISONE50 MG PO (09:16)
[2019-01-27] MEDS ORDERED: AUGMENTIN 875-1 EACH PO (09:16)
[2019-01-27] MEDS ORDERED: NORCO 5-325 TA1 EAC1 PO (09:24)
[2019-01-27 09:28] VITALS: BP 140/79
== END 2019-01-27 09:28 | disposition home or self-care (01) ==
LOC: M.ERS 07:09
PROVIDERS: Emergency Medicine Emergency Medical Services
DX: J02.9 Acute pharyngitis, unspecified (principal); E03.9 Hypothyroidism, unspecified; E78.5 Hyperlipidemia, unspecified; I50.9 Heart failure, unspecified; Z86.718 Personal history of other venous thrombosis and embolism; Z86.2 Personal history of diseases of the blood and blood-forming organs and certain disorders involving the immune mechanism

== ENCOUNTER → 2019-05-13 | Outpatient (CLI) | payer MEDICARE, OTHER ==
[~2019-05-13] MED LIST changes: +AUGMENTIN 875-1 EACH PO; +NORCO 5-325 TA1 EAC1 PO; +PREDNISONE50 MG PO
--- NOTE | 2019-05-14 16:45 | ONC ---
[address] [address] RADIATION ONCOLOGY NOTE Name: TAINA WARD SAHARA Room: [facility] JayRobb#: [id number] Admission: 05/13/19 Attend Phys: Cade Rico MD Discharge: Date of : 54 Report #: [id number] THIS REPORT FOR: //name// CC: Dr. Los Rico MD RADIATION ONCOLOGY FOLLOWUP NOTE REFERRING PHYSICIANS: Dr. Jim Sequeira from urology, Dr. Weeks, Dr. Magdaleno, Dr. Farrell, Dr. Mayte Larson. [facility] phone is [phone]. PRIMARY SITE AND HISTOPATHOLOGY: The patient received postoperative radiation therapy after resection of a stage FRANCA tonsillar cancer and received chemoradiotherapy. Radiation treatments were completed on 11/06/2006. INTERVAL NOTE: The patient indicated he was diagnosed with prostate cancer. He said that his PSA on 11/19/2018 was 8.82. He had 7 cores out of 12 positive for adenocarcinoma of the prostate, several were Strasburg score 4+3 equals 7. There was perineural invasion present. He indicated that he is scheduled for a prostatectomy with his urologist, Dr. Sequeira on 06/17/2019. He is edentulous. He has a full set of dentures. He eats well. He had a defibrillator removed around 2018. He also indicated that his primary care physician decreased his levothyroxine from 175 mcg a day to 150 mcg per day. MEDICATIONS: The patient is taking cromolyn, carvedilol, amiodarone, warfarin, omeprazole, pilocarpine, vitamin D, atorvastatin, 150 mcg of levothyroxine per day, hydralazine, lisinopril and isosorbide. SOCIAL HISTORY: Cigarettes: The patient does not smoke cigarettes. REVIEW OF SYSTEMS: RESPIRATORY: The patient was not short of breath. His breathing was baseline. GASTROINTESTINAL: He has a good appetite. PHYSICAL EXAMINATION: VITAL SIGNS: The patient weighed 201.2 pounds on 05/13/2019. The patient was 198 pounds on 05/14/2018. On 05/13/2019, blood pressure was 115/75, pulse 78, respirations 18, oxygen saturation 95%. LYMPH NODES: The patient had no palpable cervical or supraclavicular lymphadenopathy. HEAD, EYES, EARS, NOSE AND THROAT: Mouth had [place] [address] RADIATION ONCOLOGY NOTE Name: TAINA WARD SAHARA Room: [facility]#: [id number] Admission: 05/13/19 Attend Phys: Cade Rico MD Discharge: Date of : 54 Report #: [id number] suspicious palpable lesions. HEART: Had a regular rate and rhythm without murmur. LUNGS: were clear to auscultation. LABORATORY DATA: The patient had a TSH checked on 05/12/2019 and it was 4.53 with normal being 0.35-4.94 which was within normal limits with him taking 150 mcg of levothyroxine per day. ASSESSMENT AND PLAN: 1. Prostate cancer- The patient said that he is scheduled for a prostatectomy with his urologist, Dr. Sequeira, on 06/17/2019. The patient was asked to schedule a followup appointment to see me in a year. 2. History of head and neck cancer- There is no evidence of head and neck cancer at this time. The patient was asked to schedule a followup appointment with me in about a year. 3. Hypothyroidism- The patient's TSH was within normal limits with him taking 150 mcg of levothyroxine per day. A TSH was ordered in about 1 year and the patient was asked to schedule a followup appointment to see me in about 1 year. 4. Xerostomia-The patient was given a refill for pilocarpine for xerostomia. 5. Hyperlipidemia- The patient takes atorvastatin and that is managed by his referring physicians. Thank you for allowing me to participate in the care of this patient. <ELECTRONICALLY SIGNED> By: Cade Rico MD 05/14/19 1645 1117 [id number] Rico MD /nt
== END ==
LOC: M.RTH 04:14
DX: C61 Malignant neoplasm of prostate (principal)